=== PATIENT | female | born 1990 | race Caucasian/White ===

== ENCOUNTER 2017-06-21 21:03 | Emergency (ER) | payer OTHER ==
[~2017-06-21] VITALS: Ht 162.6 cm; Wt 63.5 kg
[~2017-06-21 21:03] MED LIST: NO MEDICATIONS; PHENERGAN PO; PHENERGAN25 MG PO; PRENATAL MULITV1 TAB PO; PRENATAL1 TA1 PO
[2017-06-21] MEDS ORDERED: NO MEDICATIONS (21:10)
== END 2017-06-21 22:09 | disposition home or self-care (01) ==
LOC: SED 21:03
DX: K04.7 Periapical abscess without sinus (principal); J45.909 Unspecified asthma, uncomplicated; F17.200 Nicotine dependence, unspecified, uncomplicated
CPT/HCPCS: 99283